=== PATIENT | male | born 1965 | race American Indian/Alaskan Native ===

== ENCOUNTER 2022-06-11 06:24 | Inpatient (IN) | payer SELFPAY ==
[2022-06-11] MEDS ORDERED: ALBUTEROL 2.5 MG/3 ML NEBU IH ONE (07:25)
--- NOTE | 2022-06-11 08:14 | XRay Report ---
CHEST 1 VIEW 06/11/2022 7:41 AM INDICATION / CLINICAL INFORMATION: sob. COMPARISON: None available. FINDINGS: SUPPORT DEVICES: None. HEART / MEDIASTINUM: There is enlargement of the cardiac silhouette. LUNGS / PLEURA: There is a right pleural effusion. No pneumothorax. ADDITIONAL FINDINGS: No significant additional findings. IMPRESSION: 1. There is right pleural effusion. There is enlargement of the cardiac silhouette. Signer Name: Armando Damian MD Signed: 06/11/2022 8:09 AM Workstation Name: [id number]
[2022-06-11 08:26] LABS: Alanine Aminotransferase 76 units/L (7-56); Albumin 3.3 g/dL (3.9-5); BUN/Creatinine Ratio 9; Blood Urea Nitrogen 9 mg/dL (9-20); Calcium 8.8 mg/dL (8.4-10.2); Hemolysis Index 10
--- NOTE | 2022-06-11 08:27 | Emergency Department Report ---
ED Shortness of Breath HPI - General Chief Complaint: Dyspnea/Respdistress Stated Complaint: DIFF BREATHING Time Seen by Provider: 06/11/22 07:20 Source: EMS Mode of arrival: Stretcher Limitations: No Limitations - History of Present Illness Initial Comments: 56-year-old -Turkish male with no significant past medical history complaint with cough and shortness of breath x3 days. Patient admits to smoking and admits to wheezing shortness of breath. Denies that his cough is productive. MD Complaint: shortness of breath, cough -: Gradual, days(s) Severity: moderate Quality: dull Consistency: intermittent Worsens With: nothing, exertion Context: recent URI Associated Symptoms: cough Treatments Prior to Arrival: oxygen - Related Data Home Oxygen Therapy: No Allergies Allergy/AdvReac Type Severity Reaction Status Date / Time No Known Allergies Allergy Unverified 06/11/22 06:28 ED Review of Systems ROS: Stated complaint: DIFF BREATHING Other details as noted in HPI Constitutional: no symptoms reported Eyes: as per HPI ENT: as per HPI Respiratory: no symptoms reported, cough, orthopnea, shortness of breath, SOB with exertion Cardiovascular: as per HPI, dyspnea on exertion Endocrine: no symptoms reported Gastrointestinal: as per HPI Genitourinary: as per HPI Skin: as per HPI Neurological: weakness ED Past Medical Hx - Past Medical History Previous Medical History?: No - Surgical History Past Surgical History?: No - Social History Smoking Status: Current Every Day Smoker Substance Use Type: None ED Physical Exam - General Limitations: No Limitations General appearance: alert - Head Head exam: Present: atraumatic, normocephalic - Eye Eye exam: Present: normal appearance, PERRL Pupils: Present: normal accommodation - ENT ENT exam: Present: normal exam, normal orophraynx - Neck Neck exam: Present: normal inspection, full ROM - Respiratory Respiratory exam: Present: respiratory distress, wheezes, rales, decreased breath sounds - Cardiovascular Cardiovascular Exam: Present: regular rate, normal rhythm - GI/Abdominal GI/Abdominal exam: Present: soft, distended, normal bowel sounds. Absent: tenderness, guarding, rebound - Extremities Exam Extremities exam: Present: normal inspection, full ROM, normal capillary refill. Absent: pedal edema, joint swelling, calf tenderness ED Course Vital Signs 06/11/22 06/11/22 06/11/22 06:28 07:43 09:15 Temperature 99.0 F 99 F Pulse Rate 110 H 102 H Pulse Rate [ 103 H Bilateral] Respiratory 18 20 Rate Respiratory 18 Rate [Bilateral ] Blood Pressure 128/84 Blood Pressure 130/80 [Right] O2 Sat by Pulse 95 97 Oximetry 06/11/22 06/11/22 06/11/22 09:38 11:24 11:47 Temperature Pulse Rate 100 H 101 H Pulse Rate [ Bilateral] Respiratory 19 14 Rate Respiratory Rate [Bilateral ] Blood Pressure Blood Pressure 125/86 134/89 [Right] O2 Sat by Pulse 94 93 100 Oximetry ED Medical Decision Making - Lab Data Result diagrams: 06/11/22 07:44 06/11/22 07:44 Critical care attestation.: If time is entered above; I have spent that time in minutes in the direct care of this critically ill patient, excluding procedure time. ED Disposition Clinical Impression: Hypertension, Pleural effusion Disposition: 02 [facility]ORT TERM [facility]OS[facility]ITAL Is pt being admited?: No Does the pt Need Aspirin: No Condition: Stable
[2022-06-11 08:56] LABS: Eosinophils % (Auto) 0.4 % (0.0-4.3); Mean Corpuscular HGB Conc 33 % (32-34); Monocytes # (Auto) 1.9 K/mm3 (0.0-0.8); Monocytes % (Auto) 16.4 % (0.0-7.3)
[2022-06-11 09:48] LABS: Hemoglobin 12.7 gm/dl (11.8-15.2); Mean Corpuscular Volume 96 fl (84-94); Platelet Count 417 K/mm3 (140-440); Red Blood Count 4.05 M/mm3 (3.65-5.03); Red Cell Distribution Width 14.5 % (13.2-15.2)
[2022-06-11] MEDS ORDERED: NALOXONE 0.4 MG/1 ML INJ IV PRN (11:00)
[2022-06-11] MEDS ORDERED: ONDANSETRON 4 MG/2 ML INJ IV PRN (11:00)
[2022-06-11] MEDS ORDERED: oxyCODONE /ACETAMINOPHEN 5-325MG TAB PO PRN (11:00)
[2022-06-11] MEDS ORDERED: ACETAMINOPHEN 650 MG RECT SUPP PR PRN (11:00)
[2022-06-11] MEDS ORDERED: ALBUTEROL 2.5 MG/3 ML NEBU IH PRN (12:00)
--- NOTE | 2022-06-11 12:05 | History and Physical Report ---
History of Present Illness Date of admission: 06/11/22 10:14 Chief complaint: I cannot breathe History of present illness: 56 YO Male with Obesity Hypoventilation Syndrome, Nicotine Dependence presents ED for evaluation. Patient reports "I cannot breathe". Patient states he has experienced shortness of breath over the past 3 days with persistent symptoms over the same timeframe.EMS was notified and upon arrival the patient was found to be in distress and subsequent transported to [facility] for further care and evaluation of the aforementioned symptoms. The patient was seen and evaluated e mergency department. All lab and imaging studies reviewed. Patient found to have a pulse oximetry of 87% on room air which is consistent with acute hypoxemic respiratory failure, systemic inflammatory response syndrome. Patient underwent chest x-ray and was found to have large right pleural effusion. Patient admitted to medical floor due to increased risk of worsening symptoms and for medical stabilization. Radiology consulted in ED for diagnostic/therapeutic thoracentesis. Patient denies fever, chills, chest pain, palpitation, adductive cough, skin rash, recent ill contacts, known exposure to COVID-19. No prior admission for review. No medication listed at time of admission for reconciliation. Advanced care planning conducted in ED. Past History Past Medical History: other (See HPI) Past Surgical History: No surgical history, Other (Reviewed) Social history: single, smoking. denies: alcohol abuse, prescription drug abuse Family history: hypertension Medications and Allergies Allergies Allergy/AdvReac Type Severity Reaction Status Date / Time No Known Allergies Allergy Unverified 06/11/22 06:28 Active Meds: Active Medications Acetaminophen (Acetaminophen 325 Mg Tab) 650 mg PO Q4H PRN PRN Reason: Pain MILD(1-3)/Fever >100.5/MITCHELL Acetaminophen (Acetaminophen 650 Mg Rect Supp) 650 mg DC Q4H PRN PRN Reason: Pain MILD(1-3)/Fever >100.5/MITCHELL Albuterol (Albuterol 2.5 Mg/3 Ml Nebu) 2.5 mg IH Q4HRT PRN PRN Reason: Shortness Of Breath Heparin Sodium (Porcine) (Heparin 5,000 Unit/1 Ml Vial) 5,000 unit SUB-Q Q12HR KRISTAL Naloxone HCl (Naloxone 0.4 Mg/1 Ml Inj) 0.1 mg IV Q2MIN PRN PRN Reason: Res Rate </= 8 or 02 SAT < 92% Ondansetron HCl (Ondansetron 4 Mg/2 Ml Inj) 4 mg IV Q8H PRN PRN Reason: Nausea And Vomiting Oxycodone/Acetaminophen (Oxycodone /Acetaminophen 5-325mg Tab) 1 tab PO Q6H PRN PRN Reason: Pain, Moderate (4-6) Senna (Sennosides 8.6 Mg Tab) 8.6 mg PO Q12HR KRISTAL Sodium Chloride (Sodium Chloride 0.9% 10 Ml Flush Syringe) 10 ml IV BID KRISTAL Sodium Chloride (Sodium Chloride 0.9% 10 Ml Flush Syringe) 10 ml IV PRN PRN PRN Reason: LINE FLUSH Review of Systems Constitutional: no weight loss, no weight gain, no fever, no chills Ears, nose, mouth and throat: no ear pain, no ear discharge, no nasal congestion, no nasal discharge Cardiovascular: no chest pain, no orthopnea, no rapid/irregular heart beat Respiratory: shortness of breath, no cough, no cough with sputum Gastrointestinal: no abdominal pain, no nausea, no vomiting, no diarrhea Genitourinary Male: no hematuria, no flank pain, no discharge, no urinary frequency, no urinary hesitancy Rectal: no pain, no incontinence, no bleeding Musculoskeletal: no neck stiffness, no neck pain, no shooting arm pain, no arm numbness/tingling, no low back pain Integumentary: no rash, no pruritis, no redness, no wounds, no jaundice Neurological: no head injury, no paralysis, no weakness, no numbness, no tremors Psychiatric: no anxiety, no memory loss, no insomnia, no change in appetite, no change in libido Endocrine: no cold intolerance, no polyphagia, no polydipsia, no polyuria, no flushing Hematologic/Lymphatic: no easy bruising Allergic/Immunologic: no urticaria, no allergic rhinitis, no wheezing Exam - Constitutional Vitals: Temp Pulse Resp BP Pulse Ox 99 F 101 H 14 134/89 100 06/11/22 07:43 06/11/22 11:47 06/11/22 11:47 06/11/22 11:47 06/11/22 11:47 General appearance: Present: mild distress, obese - EENT Eyes: Present: PERRL ENT: hearing intact, clear oral mucosa - Neck Neck: Present: supple, normal ROM - Respiratory Respiratory effort: normal Respiratory: right: diminished - Cardiovascular Heart Sounds: Present: S1 & S2. Absent: rub, click - Extremities Extremities: pulses symmetrical, No edema Peripheral Pulses: within normal limits - Abdominal General gastrointestinal: Present: soft, non-tender, non-distended, normal bowel sounds Male genitourinary: Present: normal - Integumentary Integumentary: Present: clear, warm, dry - Musculoskeletal Musculoskeletal: gait normal, strength equal bilaterally - Psychiatric Psychiatric: appropriate mood/affect, intact judgment & insight - Neurologic Neurologic: CNII-XII intact, moves all extremities HEART Score - HEART Score Troponin: Troponin T < 0.010 ng/mL (0.00-0.029) 06/11/22 07:44 Results - Labs CBC & Chem 7: 06/11/22 07:44 06/11/22 07:44 Labs: Abnormal lab results 06/11/22 06/11/22 Range/Units 07:44 07:44 WBC 11.3 H (4.5-11.0) K/mm3 MCV 96 H (84-94) fl Sunflower % (Auto) 16.4 H (0.0-7.3) % Sunflower # (Auto) 1.9 H (0.0-0.8) K/mm3 Seg Neutrophils % 78.3 H (40.0-70.0) % Seg Neutrophils # 8.8 H (1.8-7.7) K/mm3 Sodium 136 L (137-145) mmol/L Chloride 97.0 L (98-107) mmol/L Glucose 143 H (75-100) mg/dL AST 79 H (5-40) units/L ALT 76 H (7-56) units/L Alkaline Phosphatase 173 H (35-129) units/L Albumin 3.3 L (3.9-5) g/dL Assessment and Plan - Patient Problems (1) Acute hypoxemic respiratory failure Current Visit: Yes Status: Acute Plan to address problem: Chest x-ray, supplemental oxygen, pulse oximetry, nebulizer therapy, chest x- ray, pulmonary toilet. (2) SIRS (systemic inflammatory response syndrome) Current Visit: Yes Status: Acute Plan to address problem: Empiric IV antibiotic therapy x1 dose, CBC, repeat CBC in AM. (3) Recurrent right pleural effusion Current Visit: Yes Status: Acute Plan to address problem: Ultrasound-guided thoracentesis ordered while in the emergency department. Supportive care, repeat chest x-ray in a.m. as clinically indicated. (4) Obesity hypoventilation syndrome Current Visit: Yes Status: Acute Plan to address problem: Balanced diet, regular physical activity discharge, outpatient pulmonary follow- up for sleep study. (5) DVT prophylaxis Current Visit: Yes Status: Acute Plan to address problem: SCD to bilateral lower extremities while in bed (6) Advance care planning Current Visit: Yes Status: Acute Plan to address problem: Disease education conducted, care plan discussed, diagnoses discussed, prognosis discussed, patient is full code. Patient acknowledges understanding and agreement with care plan, +30 minutes. (7) Preventative health care Current Visit: Yes Status: Acute Plan to address problem: Patient counseled regarding balanced diet, increase physical activity discharge, weight reduction, outpatient follow-up with primary care physician for all age and risk factor appropriate screening test. +30 minutes.
[2022-06-11 12:43] LABS: INR 1.03 (0.87-1.13)
--- NOTE | 2022-06-11 13:26 | Ultrasound Report ---
ULTRASOUND-GUIDED THORACENTESIS HISTORY: right sided pleural effusion. COMPARISON: AP chest performed earlier today PROCEDURE: The risks (including but not limited to bleeding, infection, and pneumothorax) and benefi ts were explained to the patient and informed consent was obtained. A time out procedure was perform ed. Ultrasound was used to evaluate the right pleural effusion and locate the optimal site for needle ent ry. Once the skin was marked, the procedure site was prepped and draped in the usual sterile fashion and lidocaine was used for local anesthesia. A 5-Green[place] thoracentesis catheter was placed. The pat ient was monitored closely throughout the procedure, and a total of 2600 mL of bloody fluid fluid was aspirated. Samples were sent to the lab for further evaluation per the primary clinicians orders. The patient tolerated the procedure well with no complications. A post-procedure chest x-ray was imm ediately ordered. IMPRESSION: Successful ultrasound-guided thoracentesis. Signer Name: Krunal West Jr, MD Signed: 06/11/2022 1:22 PM Workstation Name: [id number]
--- NOTE | 2022-06-11 15:47 | XRay Report ---
CHEST 1 VIEW 06/11/2022 1:31 PM INDICATION / CLINICAL INFORMATION: SOB, recent thora. COMPARISON: 06/11/22 FINDINGS: SUPPORT DEVICES: None. HEART / MEDIASTINUM: Stable. LUNGS / PLEURA: Interval decrease in size of right pleural effusion now small to moderate in size. Bi basilar density is unchanged. Left lung is clear. No pneumothorax. ADDITIONAL FINDINGS: No significant additional findings. IMPRESSION: 1. Interval decrease in right pleural effusion after thoracentesis. No pneumothorax. Signer Name: Tavia Buitrago MD Signed: 06/11/2022 3:43 PM Workstation Name: [employer]
[2022-06-11] MEDS: SENNOSIDES 8.6 MG TAB PO SCH (22:28)
[2022-06-11] MEDS: HEPARIN 5,000 UNIT/1 ML VIAL SUB-Q SCH (22:28)
[2022-06-12] MEDS: ACETAMINOPHEN 325 MG TAB PO PRN ×2 (00:54→22:10)
[2022-06-12 06:34] LABS: Hematocrit 39.3 % (35.5-45.6); Hemoglobin 12.8 gm/dl (11.8-15.2); Mean Corpuscular HGB Conc 33 % (32-34); Mean Corpuscular Volume 96 fl (84-94); Red Blood Count 4.09 M/mm3 (3.65-5.03); Red Cell Distribution Width 14.8 % (13.2-15.2)
[2022-06-12 06:40] LABS: BUN/Creatinine Ratio 12; Blood Urea Nitrogen 13 mg/dL (9-20); Calcium 8.1 mg/dL (8.4-10.2); Hemolysis Index 27
[2022-06-12 08:37] LABS: Platelet Count 407 K/mm3 (140-440)
[2022-06-12 08:39] LABS: Basophils % (Manual) 0 % (0.0-1.8); Eosinophils % (Manual) 0 % (0.0-4.3); Total Cells Counted 100
[2022-06-12 08:40] LABS: Hypochromasia Few; Platelet Clumps 2+; Platelet Estimate Consistent w Auto
--- NOTE | 2022-06-12 09:29 | Electrocardiograph Report ---
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
--- NOTE | 2022-06-12 11:40 | Event Note ---
Date: 06/12/22 Patient had large volume thoracentesis with 2600 ml's of fluid removed. Still with residual pleural effusion. 1. Will order IR for repeat thora to see if we can drain fluid all the way off. 2. Once drained completely dry then repeat CT scan without contrast.
[2022-06-12] MEDS: HEPARIN 5,000 UNIT/1 ML VIAL SUB-Q SCH ×2 (12:36→22:10)
[2022-06-12] MEDS: SENNOSIDES 8.6 MG TAB PO SCH ×2 (12:37→22:11)
[2022-06-12] MEDS ORDERED: HYDROmorphone 0.5 MG/0.5 ML INJ IV PRN (17:20)
[2022-06-12] MEDS ORDERED: ACETAMINOPHEN 325 MG TAB PO PRN (17:20)
--- NOTE | 2022-06-12 20:49 | Progress Note ---
Assessment and Plan - Patient Problems (1) Acute hypoxemic respiratory failure Current Visit: Yes Status: Acute Plan to address problem: Chest x-ray, supplemental oxygen, pulse oximetry, nebulizer therapy, chest x- ray, pulmonary toilet. (2) SIRS (systemic inflammatory response syndrome) Current Visit: Yes Status: Acute Plan to address problem: Empiric IV antibiotic therapy x1 dose, CBC, repeat CBC in AM. (3) Recurrent right pleural effusion Current Visit: Yes Status: Acute Plan to address problem: Ultrasound-guided thoracentesis ordered while in the emergency department. Supportive care, repeat chest x-ray in a.m. as clinically indicated. (4) Obesity hypoventilation syndrome Current Visit: Yes Status: Acute Plan to address problem: Balanced diet, regular physical activity discharge, outpatient pulmonary follow- up for sleep study. (5) DVT prophylaxis Current Visit: Yes Status: Acute Plan to address problem: SCD to bilateral lower extremities while in bed (6) Advance care planning Current Visit: Yes Status: Acute Plan to address problem: Disease education conducted, care plan discussed, diagnoses discussed, prognosis discussed, patient is full code. Patient acknowledges understanding and agreement with care plan, +30 minutes. (7) Preventative health care Current Visit: Yes Status: Acute Plan to address problem: Patient counseled regarding balanced diet, increase physical activity discharge, weight reduction, outpatient follow-up with primary care physician for all age and risk factor appropriate screening test. +30 minutes. History Interval history: 56 YO Male HD #2 with acute hypoxemic respiratory failure, Pleural Effusion S/P thoracentesis, systemic inflammatory response syndrome. Patient resting com fortably. Patient still complains of shortness of breath. No reported nursing events. No acute decompensation overnight. Hospitalist Physical - Constitutional Vitals: Temp Pulse Resp BP Pulse Ox 98.8 F 89 18 110/77 0 L 06/12/22 04:08 06/12/22 15:00 06/12/22 04:08 06/12/22 04:08 06/12/22 16:35 General appearance: Present: mild distress, obese - EENT Eyes: Present: PERRL ENT: hearing intact - Neck Neck: Present: supple - Respiratory Respiratory effort: normal Respiratory: right: diminished - Cardiovascular Rhythm: regular Heart Sounds: Present: S1 & S2 - Extremities Extremities: no ischemia Peripheral Pulses: within normal limits - Abdominal General gastrointestinal: soft, non-tender, non-distended - Integumentary Integumentary: Present: clear, dry - Psychiatric Psychiatric: cooperative - Neurologic Neurologic: CNII-XII intact HEART Score - HEART Score Troponin: Troponin T < 0.010 ng/mL (0.00-0.029) 06/11/22 07:44 Results - Labs CBC & Chem 7: 06/13/22 14:38 06/12/22 05:59 Labs: Laboratory Last Values WBC 25.2 K/mm3 (4.5-11.0) H 06/12/22 05:59 RBC 4.09 M/mm3 (3.65-5.03) 06/12/22 05:59 Hgb 12.8 gm/dl (11.8-15.2) 06/12/22 05:59 Hct 39.3 % (35.5-45.6) 06/12/22 05:59 MCV 96 fl (84-94) H 06/12/22 05:59 MCH 31 pg (28-32) 06/12/22 05:59 MCHC 33 % (32-34) 06/12/22 05:59 RDW 14.8 % (13.2-15.2) 06/12/22 05:59 Plt Count 407 K/mm3 (140-440) 06/12/22 05:59 Lymph % (Auto) Oxidation Operator 06/12/22 05:59 Mcintosh % (Auto) Oxidation Operator 06/12/22 05:59 Eos % (Auto) Oxidation Operator 06/12/22 05:59 Baso % (Auto) Oxidation Operator 06/12/22 05:59 Lymph # (Auto) Oxidation Operator 06/12/22 05:59 Mcintosh # (Auto) Oxidation Operator 06/12/22 05:59 Eos # (Auto) Oxidation Operator 06/12/22 05:59 Baso # (Auto) Oxidation Operator 06/12/22 05:59 Add Manual Diff Complete 06/12/22 05:59 Total Counted 100 06/12/22 05:59 Seg Neutrophils % Oxidation Operator 06/12/22 05:59 Seg Neuts % (Manual) 75.0 % (40.0-70.0) H 06/12/22 05:59 Band Neutrophils % 2.0 % 06/12/22 05:59 Lymphocytes % (Manual) 8.0 % (13.4-35.0) L 06/12/22 05:59 Reactive Lymphs % (Man) 1.0 % 06/12/22 05:59 Monocytes % (Manual) 14.0 % (0.0-7.3) H 06/12/22 05:59 Eosinophils % (Manual) 0 % (0.0-4.3) 06/12/22 05:59 Basophils % (Manual) 0 % (0.0-1.8) 06/12/22 05:59 Metamyelocytes % 0 % 06/12/22 05:59 Myelocytes % 0 % 06/12/22 05:59 Promyelocytes % 0 % 06/12/22 05:59 Blast Cells % 0 % 06/12/22 05:59 Nucleated RBC % Not Reportable 06/12/22 05:59 Seg Neutrophils # Oxidation Operator 06/12/22 05:59 Seg Neutrophils # Man 0.0 K/mm3 (1.8-7.7) L 06/12/22 05:59 Band Neutrophils # 0.0 K/mm3 06/12/22 05:59 Lymphocytes # (Manual) 0.0 K/mm3 (1.2-5.4) L 06/12/22 05:59 Abs React Lymphs (Man) 0.0 K/mm3 06/12/22 05:59 Monocytes # (Manual) 0.0 K/mm3 (0.0-0.8) 06/12/22 05:59 Eosinophils # (Manual) 0.0 K/mm3 (0.0-0.4) 06/12/22 05:59 Basophils # (Manual) 0.0 K/mm3 (0.0-0.1) 06/12/22 05:59 Metamyelocytes # 0.0 K/mm3 06/12/22 05:59 Myelocytes # 0.0 K/mm3 06/12/22 05:59 Promyelocytes # 0.0 K/mm3 06/12/22 05:59 Blast Cells # 0.0 K/mm3 06/12/22 05:59 WBC Morphology Not Reportable 06/12/22 05:59 Hypersegmented Neuts Not Reportable 06/12/22 05:59 Hyposegmented Neuts Not Reportable 06/12/22 05:59 Hypogranular Neuts Not Reportable 06/12/22 05:59 Smudge Cells Not Reportable 06/12/22 05:59 Toxic Granulation Not Reportable 06/12/22 05:59 Toxic Vacuolation Not Reportable 06/12/22 05:59 Dohle Bodies Not Reportable 06/12/22 05:59 Pelger-Huet Anomaly Not Reportable 06/12/22 05:59 Claribel Rods Not Reportable 06/12/22 05:59 Platelet Estimate Consistent w auto 06/12/22 05:59 Clumped Platelets 2+ 06/12/22 05:59 Plt Clumps, EDTA Not Reportable 06/12/22 05:59 Large Platelets Not Reportable 06/12/22 05:59 Giant Platelets Not Reportable 06/12/22 05:59 Platelet Satelliting Not Reportable 06/12/22 05:59 Plt Morphology Comment Not Reportable 06/12/22 05:59 RBC Morphology Not Reportable 06/12/22 05:59 Dimorphic RBCs Not Reportable 06/12/22 05:59 Polychromasia Not Reportable 06/12/22 05:59 Hypochromasia Few 06/12/22 05:59 Poikilocytosis Not Reportable 06/12/22 05:59 Anisocytosis Not Reportable 06/12/22 05:59 Microcytosis Not Reportable 06/12/22 05:59 Macrocytosis Not Reportable 06/12/22 05:59 Spherocytes Not Reportable 06/12/22 05:59 Pappenheimer Bodies Not Reportable 06/12/22 05:59 Sickle Cells Not Reportable 06/12/22 05:59 Target Cells Not Reportable 06/12/22 05:59 Tear Drop Cells Not Reportable 06/12/22 05:59 Ovalocytes Not Reportable 06/12/22 05:59 Helmet Cells Not Reportable 06/12/22 05:59 [place] Bodies Not Reportable 06/12/22 05:59 [place] Rings Not Reportable 06/12/22 05:59 [place] Cells Not Reportable 06/12/22 05:59 Bite Cells Not Reportable 06/12/22 05:59 Crenated Cell Not Reportable 06/12/22 05:59 Elliptocytes Not Reportable 06/12/22 05:59 Acanthocytes (Spur) Not Reportable 06/12/22 05:59 Rouleaux Not Reportable 06/12/22 05:59 Hemoglobin C Crystals Not Reportable 06/12/22 05:59 Schistocytes Not Reportable 06/12/22 05:59 Malaria parasites Not Reportable 06/12/22 05:59 [place] Bodies Not Reportable 06/12/22 05:59 Hem Pathologist Commnt No 06/12/22 05:59 PT 14.7 Sec. (12.2-14.9) 06/11/22 11:25 INR 1.03 (0.87-1.13) 06/11/22 11:25 Sodium 136 mmol/L (137-145) L 06/12/22 05:59 Potassium 4.1 mmol/L (3.6-5.0) 06/12/22 05:59 Chloride 97.1 mmol/L (98-107) L 06/12/22 05:59 Carbon Dioxide 27 mmol/L (22-30) 06/12/22 05:59 Anion Gap 16 mmol/L 06/12/22 05:59 BUN 13 mg/dL (9-20) 06/12/22 05:59 Creatinine 1.1 mg/dL (0.8-1.3) 06/12/22 05:59 Estimated GFR > 60 ml/min 06/12/22 05:59 BUN/Creatinine Ratio 12 % 06/12/22 05:59 Glucose 116 mg/dL (75-100) H 06/12/22 05:59 POC Glucose 119 mg/dL (70-105) H 06/11/22 21:38 Calcium 8.1 mg/dL (8.4-10.2) L 06/12/22 05:59 Total Bilirubin 0.80 mg/dL (0.1-1.2) 06/11/22 07:44 AST 79 units/L (5-40) H 06/11/22 07:44 ALT 76 units/L (7-56) H 06/11/22 07:44 Alkaline Phosphatase 173 units/L (35-129) H 06/11/22 07:44 Troponin T < 0.010 ng/mL (0.00-0.029) 06/11/22 07:44 NT-Pro-B Natriuret Pep 197.4 pg/mL (0-900) 06/11/22 07:44 Total Protein 7.4 g/dL (6.3-8.2) 06/11/22 07:44 Albumin 3.3 g/dL (3.9-5) L 06/11/22 07:44 Albumin/Globulin Ratio 0.8 % 06/11/22 07:44 Fluid Type Pleural 06/11/22 12:15 Fluid Color [place] 06/11/22 12:15 Fluid Appearance Hazy 06/11/22 12:15 Fluid WBC 0 /mm3 06/11/22 12:15 Fluid RBC 04657 /mm3 06/11/22 12:15 Fluid Seg Neutrophils Not Reportable 06/11/22 12:15 Fluid Lymphocytes Not Reportable 06/11/22 12:15 Fluid Reactive Lymphs Not Reportable 06/11/22 12:15 Fluid Monocytes Not Reportable 06/11/22 12:15 Fluid Eosinophils Not Reportable 06/11/22 12:15 Fluid Basophils Not Reportable 06/11/22 12:15 Coronavirus (PCR) Negative (Negative) 06/12/22 Unknown Microbiology: Microbiology 06/12/22 05:59 Peripheral/Venous Blood Culture - Preliminary Culture in Progress 06/12/22 05:59 Peripheral/Venous Blood Culture - Preliminary Culture in Progress Killian/IV: Voiding Method Toilet Active Medications - Current Medications Current Medications: Generic Name Dose Route Start Last Admin Trade Name Freq PRN Reason Stop Dose Admin Acetaminophen 650 mg 06/11/22 11:00 06/12/22 00:54 Acetaminophen 325 Mg Tab PO 650 mg Q4H PRN Administration Pain MILD(1-3)/Fever >100.5/MITCHELL Acetaminophen 650 mg 06/11/22 11:00 Acetaminophen 650 Mg Rect Supp NE Q4H PRN Pain MILD(1-3)/Fever >100.5/MITCHELL Acetaminophen 650 mg 06/12/22 17:20 Acetaminophen 325 Mg Tab PO Q6H PRN Pain, Mild (1-3) Albuterol 2.5 mg 06/11/22 12:00 Albuterol 2.5 Mg/3 Ml Nebu IH Q4HRT PRN Shortness Of Breath Heparin Sodium (Porcine) 5,000 unit 06/11/22 22:00 06/12/22 12:36 Heparin 5,000 Unit/1 Ml Vial SUB-Q 5,000 unit Q12HR KRISTAL Administration Hydromorphone HCl 0.25 mg 06/12/22 17:20 Hydromorphone 0.5 Mg/0.5 Ml Inj IV Q4H PRN Pain, Moderate (4-6) Ceftriaxone Sodium 2 gm in 100 mls @ 200 mls/hr 06/12/22 18:00 Rocephin/Ns 2 Gm/100 Ml IV Q24H KRISTAL Protocol Azithromycin 500 mg in 250 mls @ 250 mls/hr 06/12/22 18:00 Zithromax/Ns IV Q24H KRISTAL Protocol Naloxone HCl 0.1 mg 06/11/22 11:00 Naloxone 0.4 Mg/1 Ml Inj IV Q2MIN PRN Res Rate </= 8 or 02 SAT < 92% Ondansetron HCl 4 mg 06/11/22 11:00 Ondansetron 4 Mg/2 Ml Inj IV Q8H PRN Nausea And Vomiting Oxycodone/Acetaminophen 1 tab 06/11/22 11:00 Oxycodone /Acetaminophen 5-325mg Tab PO Q6H PRN Pain, Moderate (4-6) Senna 8.6 mg 06/11/22 22:00 06/12/22 12:37 Sennosides 8.6 Mg Tab PO 8.6 mg Q12HR KRISTAL Administration Sodium Chloride 10 ml 06/11/22 22:00 06/12/22 12:37 Sodium Chloride 0.9% 10 Ml Flush Syringe IV 10 ml BID KRISTAL Administration Sodium Chloride 10 ml 06/11/22 11:00 Sodium Chloride 0.9% 10 Ml Flush Syringe IV PRN PRN LINE FLUSH
[2022-06-12] MEDS: cefTRIAXone/NS 2 GM/100 ML 2 GM/100 ML BAG IV SCH (22:18)
[2022-06-12] MEDS: AZITHROMYCIN/NS 500 MG/250 ML 500 MG/250 ML BAG IV SCH (22:19)
[2022-06-13] MEDS: cefTRIAXone/NS 2 GM/100 ML 2 GM/100 ML BAG IV SCH ×2 (01:35→17:59)
[2022-06-13] MEDS: AZITHROMYCIN/NS 500 MG/250 ML 500 MG/250 ML BAG IV SCH ×2 (01:35→17:59)
[2022-06-13] MEDS: SENNOSIDES 8.6 MG TAB PO SCH ×2 (10:52→21:14)
[2022-06-13] MEDS: HEPARIN 5,000 UNIT/1 ML VIAL SUB-Q SCH ×2 (10:52→21:14)
--- NOTE | 2022-06-13 15:20 | Event Note ---
Date: 06/13/22 Repeat US guided thoracentesis Asked Rads to drain completely dry Will need CT once space drained completely All PFA is send out at this hospital
[2022-06-13 16:29] LABS: Basophils % (Auto) 0.4 % (0.0-1.8); Eosinophils % (Auto) 0.1 % (0.0-4.3); Hematocrit 35.6 % (35.5-45.6); Hemoglobin 11.6 gm/dl (11.8-15.2); Lymphocytes % (Auto) 8.3 % (13.4-35.0); Mean Corpuscular HGB Conc 33 % (32-34); Mean Corpuscular Volume 96 fl (84-94); Monocytes # (Auto) 1.3 K/mm3 (0.0-0.8); Monocytes % (Auto) 11.1 % (0.0-7.3); Platelet Count 333 K/mm3 (140-440); Red Blood Count 3.72 M/mm3 (3.65-5.03); Red Cell Distribution Width 14.8 % (13.2-15.2)
--- NOTE | 2022-06-13 21:11 | Progress Note ---
Assessment and Plan - Patient Problems (1) Acute hypoxemic respiratory failure Current Visit: Yes Status: Acute Plan to address problem: Chest x-ray, supplemental oxygen, pulse oximetry, nebulizer therapy, chest x- ray, pulmonary toilet. (2) SIRS (systemic inflammatory response syndrome) Current Visit: Yes Status: Acute Plan to address problem: Empiric IV antibiotic therapy x1 dose, CBC, repeat CBC in AM. (3) Recurrent right pleural effusion Current Visit: Yes Status: Acute Plan to address problem: Ultrasound-guided thoracentesis ordered while in the emergency department. Supportive care, repeat chest x-ray in a.m. as clinically indicated. (4) Obesity hypoventilation syndrome Current Visit: Yes Status: Acute Plan to address problem: Balanced diet, regular physical activity discharge, outpatient pulmonary follow- up for sleep study. (5) DVT prophylaxis Current Visit: Yes Status: Acute Plan to address problem: SCD to bilateral lower extremities while in bed (6) Advance care planning Current Visit: Yes Status: Acute Plan to address problem: Disease education conducted, care plan discussed, diagnoses discussed, prognosis discussed, patient is full code. Patient acknowledges understanding and agreement with care plan, +30 minutes. (7) Preventative health care Current Visit: Yes Status: Acute Plan to address problem: Patient counseled regarding balanced diet, increase physical activity discharge, weight reduction, outpatient follow-up with primary care physician for all age and risk factor appropriate screening test. +30 minutes. History Interval history: 56 YO Male HD #2 with acute hypoxemic respiratory failure, Pleural Effusion S/P repeat diagnostic/therapeutic thoracentesis, systemic inflammatory response syndrome. Patient resting comfortably. Patient still complains of shortness of breath. No reported nursing events. Discharge planning in a.m. Hospitalist Physical - Constitutional Vitals: Temp Pulse Resp BP Pulse Ox 98.1 F 91 H 18 127/88 93 06/13/22 21:06 06/13/22 21:06 06/13/22 21:06 06/13/22 21:06 06/13/22 21:06 General appearance: Present: mild distress, obese - EENT Eyes: Present: PERRL ENT: hearing intact - Neck Neck: Present: supple - Respiratory Respiratory effort: normal Respiratory: right: diminished - Cardiovascular Rhythm: regular Heart Sounds: Present: S1 & S2 - Extremities Extremities: no ischemia Peripheral Pulses: within normal limits - Abdominal General gastrointestinal: soft, non-tender, non-distended - Integumentary Integumentary: Present: clear, dry - Psychiatric Psychiatric: cooperative - Neurologic Neurologic: CNII-XII intact HEART Score - HEART Score Troponin: Troponin T < 0.010 ng/mL (0.00-0.029) 06/11/22 07:44 Results - Labs CBC & Chem 7: 06/13/22 14:38 06/12/22 05:59 Labs: Laboratory Last Values WBC 12.1 K/mm3 (4.5-11.0) H 06/13/22 14:38 RBC 3.72 M/mm3 (3.65-5.03) 06/13/22 14:38 Hgb 11.6 gm/dl (11.8-15.2) L 06/13/22 14:38 Hct 35.6 % (35.5-45.6) 06/13/22 14:38 MCV 96 fl (84-94) H 06/13/22 14:38 MCH 31 pg (28-32) 06/13/22 14:38 MCHC 33 % (32-34) 06/13/22 14:38 RDW 14.8 % (13.2-15.2) 06/13/22 14:38 Plt Count 333 K/mm3 (140-440) 06/13/22 14:38 Lymph % (Auto) 8.3 % (13.4-35.0) L 06/13/22 14:38 [place] % (Auto) 11.1 % (0.0-7.3) H 06/13/22 14:38 Eos % (Auto) 0.1 % (0.0-4.3) 06/13/22 14:38 Baso % (Auto) 0.4 % (0.0-1.8) 06/13/22 14:38 Lymph # (Auto) 1.0 K/mm3 (1.2-5.4) L 06/13/22 14:38 [place] # (Auto) 1.3 K/mm3 (0.0-0.8) H 06/13/22 14:38 Eos # (Auto) 0.0 K/mm3 (0.0-0.4) 06/13/22 14:38 Baso # (Auto) 0.0 K/mm3 (0.0-0.1) 06/13/22 14:38 Add Manual Diff Complete 06/12/22 05:59 Total Counted 100 06/12/22 05:59 Seg Neutrophils % 80.1 % (40.0-70.0) H 06/13/22 14:38 Seg Neuts % (Manual) 75.0 % (40.0-70.0) H 06/12/22 05:59 Band Neutrophils % 2.0 % 06/12/22 05:59 Lymphocytes % (Manual) 8.0 % (13.4-35.0) L 06/12/22 05:59 Reactive Lymphs % (Man) 1.0 % 06/12/22 05:59 Monocytes % (Manual) 14.0 % (0.0-7.3) H 06/12/22 05:59 Eosinophils % (Manual) 0 % (0.0-4.3) 06/12/22 05:59 Basophils % (Manual) 0 % (0.0-1.8) 06/12/22 05:59 Metamyelocytes % 0 % 06/12/22 05:59 Myelocytes % 0 % 06/12/22 05:59 Promyelocytes % 0 % 06/12/22 05:59 Blast Cells % 0 % 06/12/22 05:59 Nucleated RBC % Not Reportable 06/12/22 05:59 Seg Neutrophils # 9.7 K/mm3 (1.8-7.7) H 06/13/22 14:38 Seg Neutrophils # Man 0.0 K/mm3 (1.8-7.7) L 06/12/22 05:59 Band Neutrophils # 0.0 K/mm3 06/12/22 05:59 Lymphocytes # (Manual) 0.0 K/mm3 (1.2-5.4) L 06/12/22 05:59 Abs React Lymphs (Man) 0.0 K/mm3 06/12/22 05:59 Monocytes # (Manual) 0.0 K/mm3 (0.0-0.8) 06/12/22 05:59 Eosinophils # (Manual) 0.0 K/mm3 (0.0-0.4) 06/12/22 05:59 Basophils # (Manual) 0.0 K/mm3 (0.0-0.1) 06/12/22 05:59 Metamyelocytes # 0.0 K/mm3 06/12/22 05:59 Myelocytes # 0.0 K/mm3 06/12/22 05:59 Promyelocytes # 0.0 K/mm3 06/12/22 05:59 Blast Cells # 0.0 K/mm3 06/12/22 05:59 WBC Morphology Not Reportable 06/12/22 05:59 Hypersegmented Neuts Not Reportable 06/12/22 05:59 Hyposegmented Neuts Not Reportable 06/12/22 05:59 Hypogranular Neuts Not Reportable 06/12/22 05:59 Smudge Cells Not Reportable 06/12/22 05:59 Toxic Granulation Not Reportable 06/12/22 05:59 Toxic Vacuolation Not Reportable 06/12/22 05:59 Dohle Bodies Not Reportable 06/12/22 05:59 Pelger-Huet Anomaly Not Reportable 06/12/22 05:59 Claribel Rods Not Reportable 06/12/22 05:59 Platelet Estimate Consistent w auto 06/12/22 05:59 Clumped Platelets 2+ 06/12/22 05:59 Plt Clumps, EDTA Not Reportable 06/12/22 05:59 Large Platelets Not Reportable 06/12/22 05:59 Giant Platelets Not Reportable 06/12/22 05:59 Platelet Satelliting Not Reportable 06/12/22 05:59 Plt Morphology Comment Not Reportable 06/12/22 05:59 RBC Morphology Not Reportable 06/12/22 05:59 Dimorphic RBCs Not Reportable 06/12/22 05:59 Polychromasia Not Reportable 06/12/22 05:59 Hypochromasia Few 06/12/22 05:59 Poikilocytosis Not Reportable 06/12/22 05:59 Anisocytosis Not Reportable 06/12/22 05:59 Microcytosis Not Reportable 06/12/22 05:59 Macrocytosis Not Reportable 06/12/22 05:59 Spherocytes Not Reportable 06/12/22 05:59 Pappenheimer Bodies Not Reportable 06/12/22 05:59 Sickle Cells Not Reportable 06/12/22 05:59 Target Cells Not Reportable 06/12/22 05:59 Tear Drop Cells Not Reportable 06/12/22 05:59 Ovalocytes Not Reportable 06/12/22 05:59 Helmet Cells Not Reportable 06/12/22 05:59 Esquivel-Hale Bodies Not Reportable 06/12/22 05:59 Merrick Rings Not Reportable 06/12/22 05:59 Chapo Cells Not Reportable 06/12/22 05:59 Bite Cells Not Reportable 06/12/22 05:59 Crenated Cell Not Reportable 06/12/22 05:59 Elliptocytes Not Reportable 06/12/22 05:59 Acanthocytes (Spur) Not Reportable 06/12/22 05:59 Rouleaux Not Reportable 06/12/22 05:59 Hemoglobin C Crystals Not Reportable 06/12/22 05:59 Schistocytes Not Reportable 06/12/22 05:59 Malaria parasites Not Reportable 06/12/22 05:59 Jenaro Bodies Not Reportable 06/12/22 05:59 Hem Pathologist Commnt No 06/12/22 05:59 PT 14.7 Sec. (12.2-14.9) 06/11/22 11:25 INR 1.03 (0.87-1.13) 06/11/22 11:25 Sodium 136 mmol/L (137-145) L 06/12/22 05:59 Potassium 4.1 mmol/L (3.6-5.0) 06/12/22 05:59 Chloride 97.1 mmol/L (98-107) L 06/12/22 05:59 Carbon Dioxide 27 mmol/L (22-30) 06/12/22 05:59 Anion Gap 16 mmol/L 06/12/22 05:59 BUN 13 mg/dL (9-20) 06/12/22 05:59 Creatinine 1.1 mg/dL (0.8-1.3) 06/12/22 05:59 Estimated GFR > 60 ml/min 06/12/22 05:59 BUN/Creatinine Ratio 12 % 06/12/22 05:59 Glucose 116 mg/dL (75-100) H 06/12/22 05:59 POC Glucose 119 mg/dL (70-105) H 06/11/22 21:38 Lactic Acid 1.30 mmol/L (0.7-2.0) 06/13/22 05:57 Calcium 8.1 mg/dL (8.4-10.2) L 06/12/22 05:59 Total Bilirubin 0.80 mg/dL (0.1-1.2) 06/11/22 07:44 AST 79 units/L (5-40) H 06/11/22 07:44 ALT 76 units/L (7-56) H 06/11/22 07:44 Alkaline Phosphatase 173 units/L (35-129) H 06/11/22 07:44 Troponin T < 0.010 ng/mL (0.00-0.029) 06/11/22 07:44 NT-Pro-B Natriuret Pep 197.4 pg/mL (0-900) 06/11/22 07:44 Total Protein 7.4 g/dL (6.3-8.2) 06/11/22 07:44 Albumin 3.3 g/dL (3.9-5) L 06/11/22 07:44 Albumin/Globulin Ratio 0.8 % 06/11/22 07:44 Fluid Type Pleural 06/11/22 12:15 Fluid Color Valeria 06/11/22 12:15 Fluid Appearance Hazy 06/11/22 12:15 Fluid WBC 0 /mm3 06/11/22 12:15 Fluid RBC 15360 /mm3 06/11/22 12:15 Fluid Seg Neutrophils Not Reportable 06/11/22 12:15 Fluid Lymphocytes Not Reportable 06/11/22 12:15 Fluid Reactive Lymphs Not Reportable 06/11/22 12:15 Fluid Monocytes Not Reportable 06/11/22 12:15 Fluid Eosinophils Not Reportable 06/11/22 12:15 Fluid Basophils Not Reportable 06/11/22 12:15 Coronavirus (PCR) Negative (Negative) 06/12/22 Unknown Microbiology: Microbiology 06/12/22 05:59 Peripheral/Venous Blood Culture - Preliminary NO GROWTH AFTER 24 HOURS 06/12/22 05:59 Peripheral/Venous Blood Culture - Preliminary NO GROWTH AFTER 24 HOURS Killian/IV: Voiding Method Toilet Active Medications - Current Medications Current Medications: Generic Name Dose Route Start Last Admin Trade Name Freq PRN Reason Stop Dose Admin Acetaminophen 650 mg 06/11/22 11:00 06/13/22 16:06 Acetaminophen 650 Mg Rect Supp [place] 650 mg Q4H PRN Administration Pain MILD(1-3)/Fever >100.5/MITCHELL Acetaminophen 650 mg 06/12/22 17:20 Acetaminophen 325 Mg Tab PO Q6H PRN Pain, Mild (1-3) Albuterol 2.5 mg 06/11/22 12:00 Albuterol 2.5 Mg/3 Ml Nebu IH Q4HRT PRN Shortness Of Breath Heparin Sodium (Porcine) 5,000 unit 06/11/22 22:00 06/13/22 10:52 Heparin 5,000 Unit/1 Ml Vial SUB-Q 5,000 unit Q12HR KRISTAL Administration Hydromorphone HCl 0.25 mg 06/12/22 17:20 Hydromorphone 0.5 Mg/0.5 Ml Inj IV Q4H PRN Pain, Moderate (4-6) Ceftriaxone Sodium 2 gm in 100 mls @ 200 mls/hr 06/12/22 18:00 06/13/22 17:59 Rocephin/Ns 2 Gm/100 Ml IV 200 mls/hr Q24H KRISTAL Administration Protocol Azithromycin 500 mg in 250 mls @ 250 mls/hr 06/12/22 18:00 06/13/22 17:59 Zithromax/Ns IV 250 mls/hr Q24H KRISTAL Administration Protocol Naloxone HCl 0.1 mg 06/11/22 11:00 Naloxone 0.4 Mg/1 Ml Inj IV Q2MIN PRN Res Rate </= 8 or 02 SAT < 92% Ondansetron HCl 4 mg 06/11/22 11:00 Ondansetron 4 Mg/2 Ml Inj IV Q8H PRN Nausea And Vomiting Oxycodone/Acetaminophen 1 tab 06/11/22 11:00 Oxycodone /Acetaminophen 5-325mg Tab PO Q6H PRN Pain, Moderate (4-6) Senna 8.6 mg 06/11/22 22:00 06/13/22 10:52 Sennosides 8.6 Mg Tab PO 8.6 mg Q12HR KRISTAL Administration Sodium Chloride 10 ml 06/11/22 22:00 06/13/22 10:52 Sodium Chloride 0.9% 10 Ml Flush Syringe IV 10 ml BID KRISTAL Administration Sodium Chloride 10 ml 06/11/22 11:00 Sodium Chloride 0.9% 10 Ml Flush Syringe IV PRN PRN LINE FLUSH
[2022-06-14] MEDS: HEPARIN 5,000 UNIT/1 ML VIAL SUB-Q SCH ×2 (10:10→21:24)
[2022-06-14] MEDS: SENNOSIDES 8.6 MG TAB PO SCH ×2 (10:11→21:25)
--- NOTE | 2022-06-14 12:46 | Ultrasound Report ---
ULTRASOUND CHEST HISTORY: Right pleural effusion TECHNIQUE: Grayscale ultrasound COMPARISON: 06/11/2022. FINDINGS: This examination was ordered as an ultrasound guided thoracentesis. I am familiar with this patient. Ultrasound thoracentesis was performed 2 days ago with removal of 2.6 L of blood-tinged flu id. There was complete or near complete evacuation of the pleural effusion during the prior thoracent esis. Follow-up chest x-ray was read as a persistent small to moderate right pleural effusion. Upon r eviewing the previous AP chest, believe the opacity at the right lung base represents atelectasis or infiltrate and not effusion. The patient was rescanned. There is only a tiny right pleural effusion r emaining measuring 12 cc. Ultrasound right thoracentesis was not performed for this reason. IMPRESSION: No significant right pleural effusion. See above. Probable large areas of atelectasis or infiltrate at the right lung base is demonstrated on AP chest dated 06/11/2022. Signer Name: Krunal West Jr, MD Signed: 06/14/2022 12:42 PM Workstation Name: [id number]
[2022-06-14] MEDS: cefTRIAXone/NS 2 GM/100 ML 2 GM/100 ML BAG IV SCH (17:43)
[2022-06-14] MEDS: AZITHROMYCIN/NS 500 MG/250 ML 500 MG/250 ML BAG IV SCH (17:43)
--- NOTE | 2022-06-14 20:20 | Progress Note ---
Assessment and Plan Assessment and Plan - Patient Problems (1) Acute hypoxemic respiratory failure Current Visit: Yes Status: Acute Plan to address problem: Chest x-ray, supplemental oxygen, pulse oximetry, nebulizer therapy, chest x- ray, pulmonary toilet. (2) SIRS (systemic inflammatory response syndrome) Current Visit: Yes Status: Acute Plan to address problem: Empiric IV antibiotic therapy x1 dose, CBC, repeat CBC in AM. (3) Recurrent right pleural effusion Current Visit: Yes Status: Acute Plan to address problem: Ultrasound-guided thoracentesis ordered while in the emergency department. Supportive care, repeat chest x-ray in a.m. as clinically indicated. (4) Obesity hypoventilation syndrome Current Visit: Yes Status: Acute Plan to address problem: Balanced diet, regular physical activity discharge, outpatient pulmonary follow- up for sleep study. (5) DVT prophylaxis Current Visit: Yes Status: Acute Plan to address problem: SCD to bilateral lower extremities while in bed (6) Advance care planning Current Visit: Yes Status: Acute Plan to address problem: Disease education conducted, care plan discussed, diagnoses discussed, prognosis discussed, patient is full code. Patient acknowledges understanding and agreement with care plan, +30 minutes. (7) Preventative health care Current Visit: Yes Status: Acute Plan to address problem: Patient counseled regarding balanced diet, increase physical activity discharge, weight reduction, outpatient follow-up with primary care physician for all age and risk factor appropriate screening test. +30 minutes. Subjective Date of service: 06/14/22 Principal diagnosis: Acute respiratory failure with hypoxia and Interval history: History Interval history: 56 YO Male HD #2 with acute hypoxemic respiratory failure, Pleural Effusion S/P repeat diagnostic/therapeutic thoracentesis, systemic inflammatory response syndrome. Patient resting comfortably. Patient still complains of shortness of breath. No reported nursing events. Discharge planning in a.m. Objective - Constitutional Vitals: Vital Signs - 12hr 06/14/22 06/14/22 06/14/22 10:00 11:24 15:40 Temperature 98.2 F 100.2 F H Pulse Rate 94 H 95 H Respiratory 19 18 Rate Blood Pressure 119/64 123/73 O2 Sat by Pulse 96 93 89 Oximetry 06/14/22 19:28 Temperature 98.8 F Pulse Rate 100 H Respiratory 19 Rate Blood Pressure 118/69 O2 Sat by Pulse 95 Oximetry General appearance: Present: mild distress, well-nourished - EENT Eyes: PERRL, EOM intact ENT: hearing intact, clear oral mucosa Ears: bilateral: normal - Neck Neck: supple, normal ROM - Respiratory Respiratory effort: normal Respiratory: bilateral: CTA - Breasts Breasts: normal - Cardiovascular Heart rate: 78 Rhythm: regular Heart Sounds: Present: S1 & S2. Absent: gallop, rub Extremities: pulses intact, No edema, normal color, Full ROM - Gastrointestinal General gastrointestinal: Present: soft, non-tender, non-distended, normal bowel sounds - Genitourinary Male genitourinary: normal - Integumentary Integumentary: clear, warm, dry - Musculoskeletal Musculoskeletal: 1, strength equal bilaterally - Neurologic Neurologic: moves all extremities - Psychiatric Psychiatric: memory intact, appropriate mood/affect, intact judgment & insight - Labs CBC & Chem 7: 06/13/22 14:38 06/12/22 05:59 HEART Score - HEART Score Troponin: Troponin T < 0.010 ng/mL (0.00-0.029) 06/11/22 07:44
--- NOTE | 2022-06-14 22:03 | Cat Scan Report ---
CT CHEST WITHOUT CONTRAST INDICATION / CLINICAL INFORMATION: abnormal cxr. TECHNIQUE: Axial CT images were obtained through the chest without contrast. All CT scans at [facility] are performed using CT dose reduction for ALARA by means of automated exposure control. COMPARISON: No prior cross-sectional imaging of the chest; comparison made to chest radiograph dated 06/11/2022 FINDINGS: HEART: No significant abnormality. CORONARY ARTERY CALCIFICATION: Absent -- None. THORACIC AORTA: No significant abnormality. MEDIASTINUM / MARGY: Few prominent but nonenlarged mediastinal lymph nodes. PLEURA: Multiloculated moderate right pleural effusion with scattered areas of pleural thickening. No pneumothorax. LUNGS: Respiratory motion limits evaluation of the pulmonary parenchyma. Right lower lobe atelectasis adjacent to the effusion. Linear subsegmental atelectasis in the left lower lobe. ADDITIONAL FINDINGS: None. UPPER ABDOMEN: No significant abnormality. SKELETAL SYSTEM: No significant abnormality. IMPRESSION: 1. Moderate loculated right pleural effusion. Appearance of loculations raises suspicion for infectio n or malignancy. CT chest with contrast should be considered for further evaluation as indicated. Signer Name: Terry Forrester MD Signed: 06/14/2022 9:58 PM Workstation Name: [id number]
[2022-06-15 08:53] VITALS: BP 126/67
[2022-06-15] MEDS ORDERED: AZITHROMYCIN 250 MG TAB PO SCH (10:00)
[2022-06-15] MEDS: HEPARIN 5,000 UNIT/1 ML VIAL SUB-Q SCH (10:23)
[2022-06-15] MEDS: SENNOSIDES 8.6 MG TAB PO SCH (10:23)
--- NOTE | 2022-06-15 12:48 | Event Note ---
Date: 06/15/22 CT of chest shows complex pleural space on the right. Patient needs to be evaluated by thoracic surgery for VATs which we do not have here. Patient is unfunded so not sure that he would be able to get an appointment. Could ask surgery to see if they would attempt large bore chest tube?
--- NOTE | 2022-06-15 21:05 | Discharge Summary ---
Providers - Providers Date of Admission: 06/11/22 10:14 Date of discharge: 06/15/22 Attending physician: JAYSON ESPINO 06/11/22 10:14 Consult to Physician [CONS] Routine Comment: Consulting Provider: SERGIO RICHARDS Physician Instructions: Reason For Exam: hypoxic respiratory failure Primary care physician: LAUNDERETTE ATTENDANT Hospitalization Condition: Stable Hospital course: Subjective Date of service: 06/15/22 Principal diagnosis: Acute respiratory failure with hypoxia and Interval history: History Interval history: 56 YO Male HD #2 with acute hypoxemic respiratory failure, Pleural Effusion S/P repeat diagnostic/therapeutic thoracentesis, systemic inflammatory response syndrome. Patient resting comfortably. Patient still complains of shortness of breath. No reported nursing events. Discharge planning in a.m. 06/15/2022 Patient has loculated pleural effusion Needs CT of the chest with contrast Needs evaluation for lung CA Patient refused CT chest with contrast and signed out AMA Assessment and Plan - Patient Problems (1) Acute hypoxemic respiratory failure Current Visit: Yes Status: Acute Plan to address problem: Resolved (2) SIRS (systemic inflammatory response syndrome) Current Visit: Yes Status: Acute Plan to address problem: Resolved (3) Recurrent right pleural effusion Current Visit: Yes Status: Acute Plan to address problem: Needs more work-up including CT of the chest with contrast and thoracentesis for cytology. Patient is refused CT of the chest with contrast and signed out AMA (4) Obesity hypoventilation syndrome Current Visit: Yes Status: Acute Plan to address problem: Patient advised about losing weight (5) DVT prophylaxis Current Visit: Yes Status: Acute Plan to address problem: SCD to bilateral lower extremities while in bed (6) Advance care planning Current Visit: Yes Status: Acute Plan to address problem: Disease education conducted, care plan discussed, diagnoses discussed, prognosis discussed, patient is full code. Patient acknowledges understanding and agree ment with care plan, +30 minutes. (7) Preventative health care Current Visit: Yes Status: Acute Plan to address problem: Patient counseled regarding balanced diet, increase physical activity discharge, weight reduction, outpatient follow-up with primary care physician for all age and risk factor appropriate screening test. +30 minutes. Disposition: 01 HOME / SELF CARE / HOMELESS Final Discharge Diagnosis (Prints w/discharge instructions): Acute hypoxemic respiratory failure. SIRS. Recurrent right pleural effusion. Obesity hypoventilation syndrome. Time spent for discharge: 35 minutes - Discharge Diagnoses (1) Acute hypoxemic respiratory failure Status: Acute (2) Obesity hypoventilation syndrome Status: Acute (3) Pleural effusion Status: Acute (4) DVT prophylaxis Status: Acute Core Measure Documentation - Palliative Care Palliative Care/ Comfort Measures: Not Applicable - Core Measures Any of the following diagnoses?: none Exam - Constitutional Vitals: Temp Pulse Resp BP Pulse Ox 99.5 F 89 18 126/67 96 06/15/22 12:00 06/15/22 12:00 06/15/22 12:00 06/15/22 12:00 06/15/22 12:08 General appearance: Present: no acute distress, well-nourished - EENT Eyes: Present: PERRL ENT: hearing intact, clear oral mucosa - Neck Neck: Present: supple, normal ROM - Respiratory Respiratory effort: normal Respiratory: bilateral: CTA - Cardiovascular Heart rate: 78 Rhythm: regular Heart Sounds: Present: S1 & S2. Absent: rub, click - Extremities Extremities: pulses symmetrical, No edema Peripheral Pulses: within normal limits - Abdominal General gastrointestinal: Present: soft, non-tender, non-distended, normal bowel sounds Male genitourinary: Present: normal - Integumentary Integumentary: Present: clear, warm, dry - Musculoskeletal Musculoskeletal: gait normal, strength equal bilaterally - Psychiatric Psychiatric: appropriate mood/affect, intact judgment & insight - Neurologic Neurologic: CNII-XII intact, moves all extremities Plan Activity: no restrictions Diet: low fat, low cholesterol, low salt Follow up with: PRIMARY CARE,MD [Primary Care Provider] - 7 Days Forms: AMA Form Prescriptions: levoFLOXacin [Levaquin] 750 mg PO QDAY #8 tablet oxyCODONE /ACETAMINOPHEN [Percocet 5/325 mg] 1 tab PO Q6H PRN #10 tablet PRN Reason: Pain, Moderate (4-6) Albuterol Mdi (or & Nicu Only) [ProAir HFA Inhaler] 2 puff IH QID PRN #8.5 gram PRN Reason: Shortness Of Breath
== END 2022-06-15 13:15 | disposition left against medical advice (07) | DRG 189 ==
LOC: ED 06:24 → 4A 10:14
PROVIDERS: ADMIT Internal Medicine; ATTEND Internal Medicine
PROC: 0W993ZZ Drainage of Right Pleural Cavity, Percutaneous Approach (ICD-10-PCS; principal; 2022-06-11)
DX: J96.01 Acute respiratory failure with hypoxia (principal); J90 Pleural effusion, not elsewhere classified; R65.10 Systemic inflammatory response syndrome (SIRS) of non-infectious origin without acute organ dysfunction; E66.2 Morbid (severe) obesity with alveolar hypoventilation; Z20.822 Contact with and (suspected) exposure to COVID-19; I10 Essential (primary) hypertension; Z82.49 Family history of ischemic heart disease and other diseases of the circulatory system; Z68.37 Body mass index [BMI] 37.0-37.9, adult
CPT/HCPCS: 32555; 36415; 71045; 71250; 76604; 80048; 80053; 82140; 82947; 82962; 83605; 83880; 84160; 84484; 85007; 85025; 85610; 87040; 87086; 89051; 93005; 94644; 94760; 99285; 99406; G0378; C1729; J0456; J0696; J1644; U0003